=== PATIENT | male | born 2000 | race Hispanic/Latino ===

== ENCOUNTER 2025-07-02 15:34 | Emergency (ER) | payer OTHER, SELFPAY ==
[2025-06-16 17:58] VITALS: BMI 32.9
[2025-07-02 15:39] VITALS: BP 124/72; PULSE 69; RESP 17; TEMP 36.2; O2SAT 98; BMI 31.8
--- NOTE | 2025-07-02 15:48 | ED.ABDPAIN ---
HPI - Abdominal Pain General Chief Complaint: Abdominal Pain Stated Complaint: flare up / abd pain Time Seen by Provider: 07/02/25 15:48 Source: patient Mode of arrival: Ambulatory History of Present Illness HPI narrative: 25-year-old male past medical history of pancreatitis, hyperlipidemia, comes into the ED from home for evaluation of abdominal pain, he thinks that he might be having a flare-up, states that he did take oxycodone which did help his symptoms however states that he ran out of his medication therefore came into the ED for further evaluation treatment. He has had decreased p.o. intake secondary to these symptoms but denies any nausea and vomiting. Denies any other symptoms such as headache visual disturbance chest pain shortness of breath fever chills or any other GI/ symptoms at this time. Patient states that he is in the process of seeing GI at [facility] because they are not sure of why he is getting pancreatitis. Related Data Home Medications ?Medication ?Instructions ?Recorded ?Confirmed [id number] 1 cap PO 3XD 06/16/25 06/16/25 25,000-79,000-105,000 unit capsule,delayed rel (Zenpep) oxycodone 5 mg tablet 5 mg PO Q6H PRN pain 06/16/25 06/16/25 Previous Rx's ?Medication ?Instructions ?Recorded ondansetron 4 mg disintegrating 4 mg PO Q8HR PRN Nausea And 06/22/25 tablet Vomiting #20 tabs sucralfate 100 mg/mL oral 1 gm PO Q4HR #440 mL 06/22/25 suspension ondansetron 4 mg disintegrating 4 mg PO TID PRN nausea and 07/02/25 tablet vomiting 7 days #21 tabs oxycodone 5 mg tablet 5 mg PO Q8H PRN pain 3 days #9 tabs 07/02/25 Allergies Allergy/AdvReac Type Severity Reaction Status Date / Time No Known Drug Allergies Allergy Verified 07/02/25 15:39 Review of Systems Review of Systems Narrative: General: Denies fever, chills, weight loss HEENT: Denies headache, eye drainage, eye irritation, head trauma, sore throat, voice change Cardiovascular: Denies any chest pain, palpitations, tachycardia Respiratory: Denies any shortness of breath, cough, wheeze, stridor GI/: Positive abdominal pain, denies nausea, vomiting, diarrhea, bright red blood per rectum, melanotic stools, urinary frequency, urinary retention, dysuria, hematuria MSK: Denies any joint pain, muscle pains, swelling Skin: Denies any rashes, lesions, discoloration Neuro: Denies any headache, lightheadedness, dizziness, fainting, weakness Psych: Denies SI/HI Patient History Medical History (Updated 07/02/25 @ 16:52 by Gil Escalante DO) Recurrent pancreatitis Surgical History (Updated 06/17/25 @ 19:15 by Miriam English) Anesthesia History of cholecystectomy (~01/2024) Family History (Updated 06/16/25 @ 18:22 by Saba Franco MD) Mother No problems noted. Father No problems noted. Social History household members: family Smoking Status: Never smoker alcohol intake: never Smoking Status: Never smoker Exam Narrative Exam Narrative: General: Cooperative, well-developed, not in acute distress HEENT: Normocephalic, atraumatic, PERRLA, normal sclera, eyelids normal Neck: Active full range of motion, atraumatic Chest: Normal to inspection, negative crepitus, no overlying erythema ecchymosis Respiratory: Normal respiratory effort, not in acute respiratory distress, clear to auscultation bilaterally negative cough, wheeze, tachypnea, rhonchi, rales Cardiology: Regular rate rhythm negative gallop, murmur, rubs GI/: Mild tenderness to palpation of the epigastric region, soft, non rigid, normal to inspection, exam deferred MSK: Full active range of motion in all 4 extremities, atraumatic, no tenderness to palpation of any bony prominences Skin: No rashes or lesions noted Neuro: Alert awake oriented x3, moves all 4 extremities spontaneously, cranial nerves intact, able to answer all questions appropriately follows commands appropriately Psych: Cooperative, negative suicidal or homicidal ideations Initial Vital Signs Initial Vital Signs: Vital Signs Temperature 97.1 F L 07/02/25 15:39 Pulse Rate 69 07/02/25 15:39 Respiratory Rate 17 07/02/25 15:39 Blood Pressure 124/72 07/02/25 15:39 Pulse Oximetry 98 07/02/25 15:39 Oxygen Delivery Method Room Air 07/02/25 15:39 Course Orders Ordered: ED Orders 07/02/25 15:52 CT abdomen pelvis w con Stat CXR [XR chest 1V] Stat EKG-12 Lead Stat 07/02/25 16:06 Complete Blood Count AUTO DIFF Stat Comprehensive Metabolic Panel Stat Lipase Stat MAG [Magnesium] Stat Troponin & CK Cardiac Panel Stat Discontinued Medications Sodium Chloride (Normal Saline 0.9%) 1,000 mls @ 1,000 mls/hr IV BOLUS ONE Stop: 07/02/25 16:48 Last Admin: 07/02/25 16:09 Dose: 1,000 mls/hr Morphine Sulfate (Morphine 4 Mg/Ml Inj) 4 mg IV NOW ONE Stop: 07/02/25 15:50 Last Admin: 07/02/25 16:11 Dose: 4 mg Ondansetron HCl (Ondansetron 4 Mg/2 Ml Inj) 4 mg IV NOW ONE Stop: 07/02/25 15:50 Last Admin: 07/02/25 16:09 Dose: 4 mg Vital Signs Vital signs: Vital Signs - 8 hr 07/02/25 15:39 Temperature 97.1 F L Pulse Rate 69 Respiratory Rate 17 Blood Pressure 124/72 Pulse Oximetry 98 Oxygen Delivery Method Room Air MDM - Abdominal Pain Lab Data 07/02/25 16:06 07/02/25 16:06 Labs: Lab Results 07/02/25 Range/Units 16:06 WBC 4.3 L (4.5-11.0) X10^3/uL RBC 4.55 (4.5-5.9) X10^6/uL Hgb 13.4 L (13.5-17.5) g/dL Hct 38.5 L (41-53) % MCV 84.6 (80-100) fL MCH 29.4 (26-34) PG MCHC 34.7 (30-36) % RDW 13.2 (11.6-14.8) % Plt Count 209 (150-400) X10^3/uL Neut % (Auto) 62.0 (50-75) % Lymph % (Auto) 27.1 (25-40) % Porter % (Auto) 6.7 (3-14) % Eos % (Auto) 3.5 (2-4) % Baso % (Auto) 0.7 (0-2) % Neut # (Auto) 2700 (7619-6622) /uL Lymph # (Auto) 1200 (6770-0459) /uL Porter # (Auto) 300 (0-900) /uL Eos # (Auto) 100 (0-450) /uL Baso # (Auto) 0 (0-100) /uL Sodium 137 (137-145) mmol/L Potassium 4.0 (3.4-5.1) mmol/L Chloride 101 (98-107) mmol/L Carbon Dioxide 26 (22-32) mmol/L BUN 13 (9-20) mg/dL Creatinine 0.87 (0.66-1.25) mg/dL Estimated GFR > 60 (>60) mL/min BUN/Creatinine Ratio 14.9 (6-22) Glucose 96 (70-99) mg/dL Calcium 9.6 (8.4-10.2) mg/dL Magnesium 1.9 (1.6-2.3) mg/dL Total Bilirubin 1.0 (0.2-1.3) mg/dL AST 95 H (17-59) IU/L ALT 178 H (<50) IU/L Alkaline Phosphatase 74 (38-126) U/L Total Creatine Kinase 89 (55-170) U/L Troponin I < 0.012 (0.01-0.034) ng/mL Total Protein 8.3 H (6.3-8.2) g/dL Albumin 4.8 (3.5-5.0) g/dL Globulin 3.5 (1.7-4.1) g/dL Albumin/Globulin Ratio 1.4 (1.0-2.8) Lipase 6399 H (23-300) U/L ECG Data Interpretation: EKG interpreted by ED physician sinus bradycardia 52 beats per minute QTC 396 QRS NJ interval within normal limits, no STEMI MDM Narrative Medical decision making narrative: 25-year-old male with a history of hyperlipidemia pancreatitis presents for epigastric pain states it is similar to his history of pancreatitis. States that he normally takes oxycodone to help with his pain but was unable to do so due to the fact that he ?ran out he describes it as pressure no radiation. States it is the exact same whenever he has pancreatitis flare. He states that he is not sure why he has been keratitis states that he saw a software quality specialist previously and has now been referred to [facility]. On my exam patient with mild epigastric tenderness to palpation but otherwise no other findings. Patient's EKG nonischemic in nature, troponin negative, patient's chest x-ray without any acute cardiopulmonary abnormality, CT does show minimal peripancreatic edema, lipase was elevated at 6399, however patient with improved symptoms after administration of fluids and morphine, patient was able to tolerate p.o. liquids here, patient will be sent home with strict return precautions pain management and antinausea meds, he was instructed to follow up with primary care and his GI doctor, he verbalized understanding of this and agrees to being discharged home with outpatient follow up Discharge Plan Departure Patient Disposition: Home Clinical Impression: Acute pancreatitis Instructions: DI for Pancreatitis Activity Restrictions/Additional Instructions: For the next 24 hours please limit your oral intake to just clear liquids, please follow up with your primary care doctor and your software quality specialist Please return to the emergency department immediately if you are not able to tolerate the pain medications symptoms get worse Please read the discharge instructions sheet carefully and bring all papers to all doctor follow-up visits, as it may contain information that your doctor may want to see. Disease processes change and evolve, if your symptoms worsen or if you develop any new symptoms that are concerning to you please return for evaluation. Your evaluation today does not show any evidence of any life-threatening/serious illnesses requiring admission to the hospital or surgery. Please follow-up with your doctor for re-evaluation in approximately 1 day. Seek immediate medical attention for any worrisome symptoms. *If you do not have a primary care provider please contact the [facility] Resource line at [phone]. They will ask some questions about your medical history and help get you set up with a doctor in the community. Prescriptions: New oxycodone 5 mg tablet 5 mg PO Q8H PRN (Reason: pain) 3 Days Qty: 9 0RF ondansetron 4 mg tablet,disintegrating 4 mg PO TID PRN (Reason: nausea and vomiting) 7 Days Qty: 21 0RF No Action oxycodone 5 mg tablet 5 mg PO Q6H PRN (Reason: pain) Zenpep 25,000-79,000- 105,000 unit capsule,delayed release(DR/EC) 1 cap PO 3XD sucralfate 100 mg/mL Suspension 1 gm PO Q4HR Qty: 440 0RF ondansetron 4 mg Tablet,Disintegrating 4 mg PO Q8HR PRN (Reason: Nausea And Vomiting) Qty: 20 0RF Referrals: Miscellaneous,Doctor, MD [Primary Care Provider, Medical] Stand Alone Forms: Patient Portal/API
--- NOTE | 2025-07-02 15:52 | DI.CT.S_ITS ---
PROCEDURE: CT ABDOMEN PELVIS W CON INDICATIONS: Epigastric pain history of pancreatitis TECHNIQUE: After the administration of intravenous contrast, axial sections acquired from the lung bases to the pubic symphysis. Coronal and sagittal reformats were performed. For radiation dose reduction, the following was used: automated exposure control, adjustment of mA and/or kV according to patient size. COMPARISON: [facility], CT, CT ABDOMEN PELVIS W CON, 06/16/2025, 16:09. FINDINGS: Image quality: Diagnostic. Lower Chest: No significant findings. ABDOMEN: Liver: No solid mass. Gallbladder: Not identified and likely surgically absent. Biliary ducts: No biliary dilation. Pancreas: No ductal dilation. No peripancreatic fluid collection. No suspicious mass. Spleen: Size is within normal limits. Adrenal Glands: No adrenal nodules. Kidneys and Ureters: No hydronephrosis. No solid mass. No complex renal cystic lesion which requires follow up. Stomach and Bowel: Normal colonic caliber, without significant wall thickening. Peritoneum: No abnormal intraperitoneal fluid. Minimal peripancreatic edema. No free air. Ventral Wall: No significant ventral hernia. Abdominal Nodes: No retroperitoneal or mesenteric adenopathy by size criteria. Vessels: Aorta and inferior vena cava are normal in size. PELVIS: Pelvic Organs: Unremarkable. Bladder: No bladder wall thickening, accounting for underdistention. Pelvic Nodes: No enlarged lymph nodes. Miscellaneous: No inguinal hernias are seen. Bones: No aggressive osseous abnormality. IMPRESSION: Minimal peripancreatic edema which is nonspecific but can be seen in setting of pancreatitis. Of note, CT is insensitive for pancreatitis. Dictated by: Julienne Becerra M.D. on 07/02/2025 at 15:25 Approved by: Julienne Becerra M.D. on 07/02/2025 at 15:31
--- NOTE | 2025-07-02 15:52 | DI.RAD.S_ITS ---
PROCEDURE: XR CHEST 1V INDICATIONS: Epigastric pain TECHNIQUE: One view of the chest was acquired. COMPARISON: None. FINDINGS: Surgical changes and devices: None. Lungs and pleura: Lungs are clear. No pleural effusions or pneumothorax. Mediastinum: Mediastinal contours appear normal. Heart size is normal. Bones and chest wall: No suspicious bony lesions. Overlying soft tissues appear unremarkable. IMPRESSION: No acute cardiopulmonary abnormality is seen. Dictated by: Julienne Becerra M.D. on 07/02/2025 at 15:24 Approved by: Julienne Becerra M.D. on 07/02/2025 at 15:25
[2025-07-02] MEDS: ONDANSETRON 4 MG/2 ML INJ IV (16:09)
[2025-07-02] MEDS: SODIUM CHLORIDE 0.9% 1,000 ML 1000 ML IV (16:09)
[2025-07-02] MEDS: MORPHINE 4 MG/ML INJ IV (16:11)
[2025-07-02 16:18] LABS: Add Manual Diff / Slide Review NO; Hematocrit 38.5 % (41-53); Hemoglobin 13.4 g/dL (13.5-17.5); Lymphocytes Absolute Auto 1200 /uL (1100-4500); Mean Corpuscular HGB Conc 34.7 % (30-36); Mean Corpuscular Hemoglobin 29.4 PG (26-34); Mean Corpuscular Volume 84.6 fL (80-100); Platelet Count 209 X10^3/uL (150-400)
[2025-07-02 16:27] LABS: Alanine Aminotransferase 178 IU/L (<50); Albumin 4.8 g/dL (3.5-5.0); Albumin Globulin Ratio 1.4 (1.0-2.8); Alkaline Phosphatase 74 U/L (38-126); Blood Urea Nitrogen 13 mg/dL (9-20); Calcium 9.6 mg/dL (8.4-10.2); Carbon Dioxide 26 mmol/L (22-32); Chloride 101 mmol/L (98-107); Creatine Kinase 89 U/L (55-170); Estimated Glomerular Filt Rate > 60 mL/min (>60); Globulin 3.5 g/dL (1.7-4.1); Glucose 96 mg/dL (70-99); HEMOLYSIS < 15 (0-50); Magnesium 1.9 mg/dL (1.6-2.3); Potassium 4.0 mmol/L (3.4-5.1); Sodium 137 mmol/L (137-145); Total Protein 8.3 g/dL (6.3-8.2)
--- NOTE | 2025-07-02 16:29 | EKG_ITS ---
[facility] [address] [place] [address] Test Date: 2025-07-02 Pat Name: Cleveland KrishnamurthyDepartment: [facility] Room: Gender: Male Monkey Breeder: LIAM : 2000 Requested By: Order Number: [id number] Reading MD: Brenton Lehman MD Measurements Intervals [place] Rate: 52 P: 9 AL: 154 QRS: -15 QRSD: 104 T: 7 QT: 426 QTc: 396 Interpretive Statements Sinus bradycardia Minimal voltage criteria for LVH, may be normal variant ( R in aVL ) Electronically Signed On 07-03-2025 7:47:13 PDT by Brenton Lehman MD
[2025-07-02 16:37] VITALS: PULSE 55; O2SAT 99
[2025-07-02 16:38] VITALS: BP 110/58; PULSE 54; O2SAT 98
[2025-07-02 16:39] LABS: Troponin I < 0.012 ng/mL (0.01-0.034)
[2025-07-02 16:40] VITALS: BP 112/63; PULSE 57; RESP 20; O2SAT 98
[2025-07-02 16:43] LABS: Lipase 6399 U/L (23-300)
== END 2025-07-02 17:02 | disposition home or self-care (01) ==
PROVIDERS: Emergency Provider Student in an Organized Health Care Education/Training Program
DX: K85.90 Acute pancreatitis without necrosis or infection, unspecified (principal)
CPT/HCPCS: 36415; 71045; 74177; 80053; 82550; 83690; 83735; 84484; 85025; 93005; 96374; 96375; 99284; J2272; J2405; Q9967

== ENCOUNTER 2025-07-05 05:22 | Inpatient (IN) | payer OTHER, SELFPAY ==
[2025-06-16 17:58] VITALS: BMI 32.9
[2025-07-05] VITALS (12 sets, daily range): BP systolic 103–135; BP diastolic 49–64; PULSE 42–62; RESP 13–18; TEMP 35.9–36.9; O2SAT 94–100; BMI 31.6
[2025-07-05 05:50] LABS: Add Manual Diff / Slide Review NO; Hematocrit 42.0 % (41-53); Hemoglobin 14.4 g/dL (13.5-17.5); Lymphocytes Absolute Auto 1800 /uL (1100-4500); Mean Corpuscular HGB Conc 34.4 % (30-36); Mean Corpuscular Hemoglobin 29.3 PG (26-34); Mean Corpuscular Volume 85.1 fL (80-100); Platelet Count 232 X10^3/uL (150-400)
[2025-07-05 05:55] LABS: Alanine Aminotransferase 137 IU/L (<50); Albumin 5.3 g/dL (3.5-5.0); Albumin Globulin Ratio 1.4 (1.0-2.8); Alkaline Phosphatase 71 U/L (38-126); Blood Urea Nitrogen 13 mg/dL (9-20); Calcium 9.7 mg/dL (8.4-10.2); Carbon Dioxide 26 mmol/L (22-32); Chloride 102 mmol/L (98-107); Estimated Glomerular Filt Rate > 60 mL/min (>60); Globulin 3.7 g/dL (1.7-4.1); Glucose 112 mg/dL (70-99); HEMOLYSIS < 15 (0-50); Potassium 3.7 mmol/L (3.4-5.1); Sodium 139 mmol/L (137-145); Total Protein 9.0 g/dL (6.3-8.2)
--- NOTE | 2025-07-05 06:08 | ED_ITS ---
HPI - Abdominal Pain <Brenton Smith, DO - Last Filed: 07/05/25 17:08> General Chief Complaint: Abdominal Pain Stated Complaint: Back Pain, Abdominal Pain, Nausea Time Seen by Provider: 07/05/25 06:08 Source: patient Mode of arrival: Ambulatory History of Present Illness HPI narrative: 25-year-old gentleman history of cholecystectomy, hx of recurrent pancreatitis first dx in 2017, hypertriglyceridemia, hepatic steatosis, seen a few days ago here for pancreatitis discharged on oxycodone and has has been on a bland diet started to have worsening epigastric pain radiating to the back despite being on pain medicines. Patient denies fever, chills, bodyaches, nausea, vomiting, diarrhea, chest pain, shortness of breath, hematuria, urinary complaints. He denies any alcohol use and is on pancreatic enzyme tablet but no other meds or supplements. Other than what is stated 14 pt ROS is negative. Related Data Home Medications ?Medication ?Instructions ?Recorded ?Confirmed mhgsof-frswhihy-ajubsyu 1 cap PO 3XD 06/16/25 25,000-79,000-105,000 unit capsule,delayed rel (Zenpep) oxycodone 5 mg tablet 5 mg PO Q6H PRN pain 5 07/05/25 Previous Rx's ?Medication ?Instructions ?Recorded ondansetron 4 mg disintegrating 4 mg PO Q8HR PRN Nause a And 06/22/25 tablet Vomiting #20 tabs sucralfate 100 mg/mL oral 1 gm PO Q4HR #440 mL 5 suspension Allergies Allergy/AdvReac Type Severity Reaction Status Date / Time No Known Drug Allergies Allergy Verified 07/05/25 05:30 Review of Systems <Brenton Smith, DO - Last Filed: 07/05/25 17:08> Review of Systems ROS Unobtainable: All systems reviewed & are unremarkable except as noted in HPI and below Patient History <Brenton Smith, DO - Last Filed: 07/05/25 17:08> Medical History Recurrent pancreatitis Surgical History Anesthesia History of cholecystectomy (~01/2024) Family History Mother No problems noted. Father No problems noted. Social History household members: family Smoking Status: Never smoker alcohol intake: never Smoking Status: Smoker, status unknown Exam <Brenton Smith DO - Last Filed: 07/05/25 17:08> Narrative Exam Narrative: GENERAL: [25] year old patient appears stated age. Well-developed patient, in mild distress. HEAD: Atraumatic. Normocephalic. EYES: Pupils equal round and reactive. Extraocular motions intact. No scleral icterus. No injection or drainage. ENT: Nose without bleeding, purulent drainage. Throat without erythema, tonsillar hypertrophy or exudate. Airway patent. NECK: Trachea midline. Non tender CARDIOVASCULAR: Regular rate and rhythm without murmurs, gallops, or rubs. RESPIRATORY: Clear to auscultation. Breath sounds equal bilaterally. No wheezes, rales, or rhonchi. GASTROINTESTINAL: Abdomen soft, epigastric tenderness to palpation no rebound rigidity or guarding, nondistended. EXTREMITIES: No edema or joint tenderness. BACK: Nontender without deformity or crepitance. No flank tenderness. NEURO: AOx3. SKIN: No rash or erythema of visible areas Initial Vital Signs Initial Vital Signs: Vital Signs Temperature 97.7 F 07/05/25 05:30 Pulse Rate 62 07/05/25 05:30 Respiratory Rate 18 07/05/25 05:30 Blood Pressure 120/60 07/05/25 05:30 Pulse Oximetry 96 07/05/25 05:30 Oxygen Delivery Method Room Air 07/05/25 05:30 <Adan Jackson MD - Last Filed: 07/05/25 09:05> Initial Vital Signs Initial Vital Signs: Vital Signs Temperature 97.7 F 07/05/25 05:30 Pulse Rate 62 07/05/25 05:30 Respiratory Rate 18 07/05/25 05:30 Blood Pressure 120/60 07/05/25 05:30 Pulse Oximetry 96 07/05/25 05:30 Oxygen Delivery Method Room Air 07/05/25 05:30 Course <Brenton Smith DO - Last Filed: 07/05/25 17:08> Orders Ordered: Heparin Sodium (Porcine) (Heparin 5,000 Unit/Ml Vial) 5,000 unit SUBCUT BID COUNTS INCLUDE 234 BEDS AT THE [facility] Last Admin: 07/05/25 10:44 Dose: 5,000 unit Documented By: TRI Hydromorphone HCl (Hydromorphone Hcl 0.5 Mg/0.5 Ml Syringe) 1 mg IV Q2H PRN PRN Reason: Pain, Severe (7-10) Last Admin: 07/05/25 15:17 Dose: 1 mg Documented By: TRI Sodium Chloride (Normal Saline 0.9%) 1,000 mls @ 100 mls/hr IV CONT COUNTS INCLUDE 234 BEDS AT THE [facility] Last Admin: 07/05/25 10:43 Dose: 100 mls/hr Documented By: TRI Naloxone HCl (Naloxone 0.4 Mg/Ml Vial) 0.2 mg IV Q2MIN PRN PRN Reason: Opiate Reversal Ondansetron HCl (Ondansetron 4 Mg/2 Ml Inj) 4 mg IV NOW PRN PRN Reason: Nausea And Vomiting Last Admin: 07/05/25 06:31 Dose: 4 mg Documented By: CHRIS Ondansetron HCl (Ondansetron 4 Mg Odt) 4 mg PO NOW PRN PRN Reason: Nausea And Vomiting Ondansetron HCl (Ondansetron 4 Mg/2 Ml Inj) 4 mg IV Q8HR PRN PRN Reason: Nausea And Vomiting Discontinued Medications Hydromorphone HCl (Hydromorphone 1 Mg/Ml Syringe) 1 mg IV NOW ONE Stop: 07/05/25 06:24 Last Admin: 07/05/25 06:30 Dose: 1 mg Documented By: CHRIS Hydromorphone HCl (Hydromorphone Hcl 0.5 Mg/0.5 Ml Syringe) 0.5 mg IV Q2H PRN PRN Reason: Pain, Severe (7-10) Last Admin: 07/05/25 12:54 Dose: 0.5 mg Documented By: Admin: 07/05/25 10:44 Dose: 0.5 mg Documented By: TRI Lactated Ringer's (Lactated Ringers) 1,000 mls @ 1,000 mls/hr IV BOLUS ONE Stop: 07/05/25 07:10 Last Infusion: 07/05/25 08:37 Dose: Infused Documented By: Admin: 07/05/25 06:32 Dose: 1,000 mls/hr Documented By: CHRIS Ketorolac Tromethamine (Ketorolac 30 Mg/Ml Vial) 15 mg IV NOW ONE Stop: 07/05/25 06:24 Last Admin: 07/05/25 06:31 Dose: 15 mg Documented By: CHRIS Vital Signs Vital signs: Vital Signs - 8 hr 07/05/25 05:30 07/05/25 06:18 07/05/25 06:30 Temperature 97.7 F Pulse Rate 62 51 L 56 L Respiratory Rate 18 Blood Pressure 120/60 Pulse Oximetry 96 96 97 Oxygen Delivery Method Room Air 07/05/25 07:00 07/05/25 07:29 07/05/25 07:29 Temperature Pulse Rate 57 L 47 L Respiratory Rate Blood Pressure 103/50 L Pulse Oximetry 94 94 Oxygen Delivery Method 07/05/25 07:30 07/05/25 07:30 07/05/25 08:00 Temperature Pulse Rate 42 L Respiratory Rate Blood Pressure 103/53 L 107/57 L Pulse Oximetry 95 Oxygen Delivery Method 07/05/25 08:00 07/05/25 08:30 07/05/25 08:30 Temperature Pulse Rate 53 L 42 L Respiratory Rate Blood Pressure 118/58 L Pulse Oximetry 98 96 Oxygen Delivery Method <Adan Jackson MD - Last Filed: 07/05/25 09:05> Course Course Narrative: Care assumed at 7:00 a.m. shift change. Reviewed labs and previous note. On examination the patient reports his pain is adequately controlled he is not presently nauseated. He has not been having fevers. Has had numerous episodes of pancreatitis and previous admissions. Has a referral to the [facility]. On exam he has upper abdominal tenderness with voluntary guarding. CT is done I reviewed it appears to have pancreatitis without complication. We will await radiology report. Plan for admission for bowel rest hydration and symptom control discussed with patient who is in agreement. Orders Ordered: Heparin Sodium (Porcine) (Heparin 5,000 Unit/Ml Vial) 5,000 unit SUBCUT BID AARON Last Admin: 07/05/25 10:44 Dose: 5,000 unit Documented By: TRI Hydromorphone HCl (Hydromorphone Hcl 0.5 Mg/0.5 Ml Syringe) 1 mg IV Q2H PRN PRN Reason: Pain, Severe (7-10) Last Admin: 07/05/25 15:17 Dose: 1 mg Documented By: TRI Sodium Chloride (Normal Saline 0.9%) 1,000 mls @ 100 mls/hr IV CONT AARON Last Admin: 07/05/25 10:43 Dose: 100 mls/hr Documented By: TRI Naloxone HCl (Naloxone 0.4 Mg/Ml Vial) 0.2 mg IV Q2MIN PRN PRN Reason: Opiate Reversal Ondansetron HCl (Ondansetron 4 Mg/2 Ml Inj) 4 mg IV NOW PRN PRN Reason: Nausea And Vomiting Last Admin: 07/05/25 06:31 Dose: 4 mg Documented By: CHRIS Ondansetron HCl (Ondansetron 4 Mg Odt) 4 mg PO NOW PRN PRN Reason: Nausea And Vomiting Ondansetron HCl (Ondansetron 4 Mg/2 Ml Inj) 4 mg IV Q8HR PRN PRN Reason: Nausea And Vomiting Discontinued Medications Hydromorphone HCl (Hydromorphone 1 Mg/Ml Syringe) 1 mg IV NOW ONE Stop: 07/05/25 06:24 Last Admin: 07/05/25 06:30 Dose: 1 mg Documented By: CHRIS Hydromorphone HCl (Hydromorphone Hcl 0.5 Mg/0.5 Ml Syringe) 0.5 mg IV Q2H PRN PRN Reason: Pain, Severe (7-10) Last Admin: 07/05/25 12:54 Dose: 0.5 mg Documented By: Admin: 07/05/25 10:44 Dose: 0.5 mg Documented By: TRI Lactated Ringer's (Lactated Ringers) 1,000 mls @ 1,000 mls/hr IV BOLUS ONE Stop: 07/05/25 07:10 Last Infusion: 07/05/25 08:37 Dose: Infused Documented By: MLEvin Admin: 07/05/25 06:32 Dose: 1,000 mls/hr Documented By: CHRIS Ketorolac Tromethamine (Ketorolac 30 Mg/Ml Vial) 15 mg IV NOW ONE Stop: 07/05/25 06:24 Last Admin: 07/05/25 06:31 Dose: 15 mg Documented By: CHRIS Consultations Consultation #1: Case discussed with hospitalist, Dr. Schroeder, admission is accepted Vital Signs Vital signs: Vital Signs - 8 hr 07/05/25 05:30 07/05/25 06:18 07/05/25 06:30 Temperature 97.7 F Pulse Rate 62 51 L 56 L Respiratory Rate 18 Blood Pressure 120/60 Pulse Oximetry 96 96 97 Oxygen Delivery Method Room Air 07/05/25 07:00 07/05/25 07:29 07/05/25 07:29 Temperature Pulse Rate 57 L 47 L Respiratory Rate Blood Pressure 103/50 L Pulse Oximetry 94 94 Oxygen Delivery Method 07/05/25 07:30 07/05/25 07:30 07/05/25 08:00 Temperature Pulse Rate 42 L Respiratory Rate Blood Pressure 103/53 L 107/57 L Pulse Oximetry 95 Oxygen Delivery Method 07/05/25 08:00 07/05/25 08:30 07/05/25 08:30 Temperature Pulse Rate 53 L 42 L Respiratory Rate Blood Pressure 118/58 L Pulse Oximetry 98 96 Oxygen Delivery Method MDM - Abdominal Pain <Brenton Smith, DO - Last Filed: 07/05/25 17:08> Lab Data 07/05/25 05:38 07/05/25 05:38 Labs: Lab Results 07/05/25 Range/Units 05:38 WBC 5.9 (4.5-11.0) X10^3/uL RBC 4.93 (4.5-5.9) X10^6/uL Hgb 14.4 (13.5-17.5) g/dL Hct 42.0 (41-53) % MCV 85.1 (80-100) fL MCH 29.3 (26-34) PG MCHC 34.4 (30-36) % RDW 13.3 (11.6-14.8) % Plt Count 232 (150-400) X10^3/uL Neut % (Auto) 56.0 (50-75) % Lymph % (Auto) 30.5 (25-40) % [place] % (Auto) 8.7 (3-14) % Eos % (Auto) 4.4 H (2-4) % Baso % (Auto) 0.4 (0-2) % Neut # (Auto) 3300 (4278-7711) /uL Lymph # (Auto) 1800 (0998-4291) /uL [place] # (Auto) 500 (0-900) /uL Eos # (Auto) 300 (0-450) /uL Baso # (Auto) 0 (0-100) /uL Sodium 139 (137-145) mmol/L Potassium 3.7 (3.4-5.1) mmol/L Chloride 102 (98-107) mmol/L Carbon Dioxide 26 (22-32) mmol/L BUN 13 (9-20) mg/dL Creatinine 1.02 (0.66-1.25) mg/dL Estimated GFR > 60 (>60) mL/min BUN/Creatinine Ratio 12.7 (6-22) Glucose 112 H (70-99) mg/dL Calcium 9.7 (8.4-10.2) mg/dL Total Bilirubin 0.9 (0.2-1.3) mg/dL AST 70 H (17-59) IU/L ALT 137 H (<50) IU/L Alkaline Phosphatase 71 (38-126) U/L Total Protein 9.0 H (6.3-8.2) g/dL Albumin 5.3 H (3.5-5.0) g/dL Globulin 3.7 (1.7-4.1) g/dL Albumin/Globulin Ratio 1.4 (1.0-2.8) Lipase 12251 H D (23-300) U/L Point of care testing: Urine Dip Bedside Urine Glucose Negative Bedside Urine Bilirubin - Negative Bedside Urine Ketone - Negative Urine Specific [place] 1.015 Bedside Urine Occult Blood - Negative Bedside Urine pH 6.0 Bedside Urine Protein +/- 15 Bedside Urine Urobilinogen 0.2 Bedside Urine Nitrite - Negative Bedside Urine Leukocytes - Negative Esterase MDM Narrative Medical decision making narrative: All lab work, vital signs, nurse triage note, medication list, previous ER visits, and all imaging studies reviewed. White count normal CMP normal except glucose 112 AST 70 ALT 137 lipase 12,161 from 6399 3 days ago. Patient given LR 1 L bolus Toradol and Dilaudid here. Pt s/o to at shift change pending final disposition. 25-year-old male with recurrent pancreatitis presenting with symptoms consistent with pancreatitis. Appears nontoxic, lipase is up trending from last visit no acute complication pancreatitis seen on CT. Patient does not appear to be septic. We will be admitted to the hospitalist service for IV hydration bowel rest and pain control. <Adan Jackson MD - Last Filed: 07/05/25 09:05> Medical Records Medical records narrative: Reviewed June 23 discharge summary, recurrent pancreatitis unknown etiology. Lab Data Lab results narrative: No leukocytosis, elevated lipase trending upward significantly since last visit, normal bilirubin Labs: Lab Results 07/05/25 Range/Units 05:38 WBC 5.9 (4.5-11.0) X10^3/uL RBC 4.93 (4.5-5.9) X10^6/uL Hgb 14.4 (13.5-17.5) g/dL Hct 42.0 (41-53) % MCV 85.1 (80-100) fL MCH 29.3 (26-34) PG MCHC 34.4 (30-36) % RDW 13.3 (11.6-14.8) % Plt Count 232 (150-400) X10^3/uL Neut % (Auto) 56.0 (50-75) % Lymph % (Auto) 30.5 (25-40) % [place] % (Auto) 8.7 (3-14) % Eos % (Auto) 4.4 H (2-4) % Baso % (Auto) 0.4 (0-2) % Neut # (Auto) 3300 (8847-1816) /uL Lymph # (Auto) 1800 (2149-0654) /uL [place] # (Auto) 500 (0-900) /uL Eos # (Auto) 300 (0-450) /uL Baso # (Auto) 0 (0-100) /uL Sodium 139 (137-145) mmol/L Potassium 3.7 (3.4-5.1) mmol/L Chloride 102 (98-107) mmol/L Carbon Dioxide 26 (22-32) mmol/L BUN 13 (9-20) mg/dL Creatinine 1.02 (0.66-1.25) mg/dL Estimated GFR > 60 (>60) mL/min BUN/Creatinine Ratio 12.7 (6-22) Glucose 112 H (70-99) mg/dL Calcium 9.7 (8.4-10.2) mg/dL Total Bilirubin 0.9 (0.2-1.3) mg/dL AST 70 H (17-59) IU/L ALT 137 H (<50) IU/L Alkaline Phosphatase 71 (38-126) U/L Total Protein 9.0 H (6.3-8.2) g/dL Albumin 5.3 H (3.5-5.0) g/dL Globulin 3.7 (1.7-4.1) g/dL Albumin/Globulin Ratio 1.4 (1.0-2.8) Lipase 69278 H D (23-300) U/L Point of care testing: Urine Dip Bedside Urine Glucose Negative Bedside Urine Bilirubin - Negative Bedside Urine Ketone - Negative Urine Specific [place] 1.015 Bedside Urine Occult Blood - Negative Bedside Urine pH 6.0 Bedside Urine Protein +/- 15 Bedside Urine Urobilinogen 0.2 Bedside Urine Nitrite - Negative Bedside Urine Leukocytes - Negative Esterase Imaging Data CT scan - abdomen/pelvis: My Impression: Independent review of CT abdomen and pelvis, inflammatory changes around the pancreas, no complications Radiologist's Impression: [address] [address] [address] Scan Report Signed Patient: Cleveland Myers MR#: [id number] : 2000 Acct:[id number] Age/Sex: 25 / M Date of Service: 07/05/25 Loc: ED Accession Number: [id number] Procedure: CT abdomen pelvis w con Ordering Provider: Brenton Smith D.O. PROCEDURE: CT ABDOMEN PELVIS W CON INDICATIONS: hx of pancreatitis TECHNIQUE: After the administration of intravenous contrast, axial sections acquired from the lung bases to the pubic symphysis. Coronal and sagittal reformats were performed. For radiation dose reduction, the following was used: automated exposure control, adjustment of mA and/or kV according to patient size. COMPARISON: [facility], CT, CT ABDOMEN PELVIS W CON, 07/02/2025, 16:17. FINDINGS: Image quality: Diagnostic. Lower Chest: No significant findings. ABDOMEN: Liver: No solid mass. Gallbladder: Absent Biliary ducts: No biliary dilation. Pancreas: Pancreatic duct is diffusely prominent to the level of the duodenum. No obstructing mass. Spleen: Size is within normal limits. Adrenal Glands: No adrenal nodules. Kidneys and Ureters: No hydronephrosis. No solid mass. No complex renal cystic lesion which requires follow up. Stomach and Bowel: Normal colonic caliber, without significant wall thickening. Normal appendix. Diverticulosis. Peritoneum: No abnormal intraperitoneal fluid. No free air. Ventral Wall: No significant ventral hernia. Abdominal Nodes: No retroperitoneal or mesenteric adenopathy by size criteria. Vessels: Aorta and inferior vena cava are normal in size. PELVIS: Pelvic Organs: Unremarkable. Bladder: No bladder wall thickening, accounting for underdistention. Pelvic Nodes: No enlarged lymph nodes. Miscellaneous: No inguinal hernias are seen. Bones: No aggressive osseous abnormality. IMPRESSION: 1. Remote cholecystectomy. 2. Mild prominence of the pancreatic duct, unchanged. 3. No biliary ductal dilatation. 4. Diverticulosis. 5. No acute abdominal process noted. Comment: Final report is concordant with preliminary interpretation provided by [facility]. Dictated by: Severino Melo M.D. on 07/05/2025 at 8:26 Approved by: Severino Melo M.D. on 07/05/2025 at 8:29 [facility] Narrative Medical decision making narrative: All lab work, vital signs, nurse triage note, medication list, previous ER visits, and all imaging studies reviewed. White count normal CMP normal except glucose 112 AST 70 ALT 137 lipase 12,161 from 6399 3 days ago. Patient given LR 1 L bolus Toradol and Dilaudid here. 25-year-old male with recurrent pancreatitis presenting with symptoms consistent with pancreatitis. Appears nontoxic, lipase is up trending from last visit no acute complication pancreatitis seen on CT. Patient does not appear to be septic. We will be admitted to the hospitalist service for IV hydration bowel rest and pain control. Discharge Plan Departure Patient Disposition: Admitted As Inpatient Clinical Impression: Acute pancreatitis Qualifiers: Pancreatitis type: unspecified pancreatitis type Acute pancreatitis complication: no infection or necrosis Qualified Code(s): K85.90 - Acute pancreatitis without necrosis or infection, unspecified Admit Date/Time: 07/05/25 08:32 Admit Provider: Contreras Toribio
[2025-07-05 06:18] LABS: Lipase 12161 U/L (23-300)
[2025-07-05] MEDS: KETOROLAC 30 MG/ML VIAL 15 MG IV (06:31)
[2025-07-05] MEDS: ONDANSETRON 4 MG/2 ML INJ IV (06:31)
[2025-07-05] MEDS: LACTATED RINGERS 1,000 ML 1000 ML IV (06:32)
--- NOTE | 2025-07-05 08:50 | W.PC.EDHO ---
Report given to Neeru Staley RN
--- NOTE | 2025-07-05 09:31 | PM.HP.1 ---
History of Present Illness History of Present Illness Date Patient Seen: 07/05/25 Time Patient Seen: 10:25 Chief complaint: Back Pain, Abdominal Pain, Nausea Narrative: Patient was a 25-year-old male with a history of chronic recurrent pancreatitis 20 has no clear contributors to his recurrent episodes. He was not drink alcohol, and was evaluated Sheron kat and not found to have a clear etiology for his issues. He was no known history of autoimmune pancreatitis, does not take any drugs implicated in pancreatitis and has no family history. He was in the ER several days ago with a lipase of 6000, did bowel rest at home and stayed on liquids. He had progressive abdominal pain which is epigastric, constant, and radiates to the back. He was having nausea, but no vomiting. He came back to the ED today and had a lipase of 12,000. [facility] Medical History Recurrent pancreatitis Surgical History Anesthesia History of cholecystectomy (~01/2024) Family History Mother No problems noted. Father No problems noted. Social History household members: family Smoking Status: Never smoker alcohol intake: never Meds Home Medications and Allergies Home Medications ?Medication ?Instructions ?Recorded ?Confirmed ?Type ydiusa-lhnufjwd-ibkijci 1 cap PO 3XD 06/16/25 06/16/25 History 25,000-79,000-105,000 unit capsule,delayed rel (Zenpep) oxycodone 5 mg tablet 5 mg PO Q6H PRN pain 06/16/25 06/16/25 History ondansetron 4 mg disintegrating 4 mg PO Q8HR PRN Nausea And 06/22/25 Rx tablet Vomiting #20 tabs sucralfate 100 mg/mL oral 1 gm PO Q4HR #440 mL 06/22/25 Rx suspension ondansetron 4 mg disintegrating 4 mg PO TID PRN nausea and 07/02/25 Rx tablet vomiting 7 days #21 tabs Allergies Allergy/AdvReac Type Severity Reaction Status Date / Time No Known Drug Allergies Allergy Verified 07/05/25 05:30 Review of Systems Review of Systems Narrative: All else reviewed and otherwise unremarkable except as noted in the history and physical. Exam Vital Signs (past 8 hours): - 07/05/25 05:30 07/05/25 06:18 07/05/25 06:30 Temperature 97.7 F Pulse Rate 62 51 L 56 L Respiratory Rate 18 Blood Pressure 120/60 Pulse Oximetry 96 96 97 Oxygen Delivery Method Room Air 07/05/25 07:00 07/05/25 07:29 07/05/25 07:29 Temperature Pulse Rate 57 L 47 L Respiratory Rate Blood Pressure 103/50 L Pulse Oximetry 94 94 Oxygen Delivery Method 07/05/25 07:30 07/05/25 07:30 07/05/25 08:00 Temperature Pulse Rate 42 L Respiratory Rate Blood Pressure 103/53 L 107/57 L Pulse Oximetry 95 Oxygen Delivery Method 07/05/25 08:00 07/05/25 08:30 07/05/25 08:30 Temperature Pulse Rate 53 L 42 L Respiratory Rate Blood Pressure 118/58 L Pulse Oximetry 98 96 Oxygen Delivery Method Oxygen Delivery Method Room Air Narrative Exam Narrative: NAD, alert and oriented, fluent speech, calm. Normocephalic skull, EOMI, anicteric sclera, symmetric pupils. Oropharynx unremarkable, no droop. Neck supple, midline trachea, no adenopathy. Lungs clear, normal rate and effort. Heart regular, no murmur gallop or rub. Abdomen is soft, non distended and notable for epigastric tenderness without guarding or rebound. Extremities are free of edema. Skin is free of rash or lesions. Joints are not swollen or deformed. Judgment appears to be normal. Objective Labs 07/05/25 05:38 07/05/25 05:38 Labs: Laboratory Results - last 24 hr 07/05/25 05:38 WBC 5.9 RBC 4.93 Hgb 14.4 Hct 42.0 MCV 85.1 MCH 29.3 MCHC 34.4 RDW 13.3 Plt Count 232 Neut % (Auto) 56.0 Lymph % (Auto) 30.5 [place] % (Auto) 8.7 Eos % (Auto) 4.4 H Baso % (Auto) 0.4 Neut # (Auto) 3300 Lymph # (Auto) 1800 [place] # (Auto) 500 Eos # (Auto) 300 Baso # (Auto) 0 Sodium 139 Potassium 3.7 Chloride 102 Carbon Dioxide 26 BUN 13 Creatinine 1.02 Estimated GFR > 60 BUN/Creatinine Ratio 12.7 Glucose 112 H Calcium 9.7 Total Bilirubin 0.9 AST 70 H ALT 137 H Alkaline Phosphatase 71 Total Protein 9.0 H Albumin 5.3 H Globulin 3.7 Albumin/Globulin Ratio 1.4 Lipase 56562 H D Assessment & Plan Assessment & Plan narrative: 1. Recurrent pancreatitis, present on admission and active. -NPO, IVF. -Analgesics. -Antiemtics. Anticipate 2 MN in the hospital. Full code. Time-Based Coding :: 35 min spent with patient and on the chart (including review of chart, obtaining history, exam, reviewing outside data, placing orders, documenting exam and treatment plan, and counseling patient) on 07/05]. Quality VTE Deep Vein Thrombosis/Pulmonary Embolism Present on Admission: No MIPS - Admit I confirm the patient?s Advance Care Plan is present, Code status is documented, Surrogate decision maker is in patient?s record [If Yes, STOP here]: Yes The patient?s Advance Care plan is not present because I confirmed today that the patient does not wish or was not able to name a surrogate decision maker or provide an Advance Care Plan.: Yes
[2025-07-05] MEDS: SODIUM CHLORIDE 0.9% 1,000 ML 100 ML IV ×2 (10:43→20:28)
[2025-07-05] MEDS: HEPARIN 5,000 UNIT/ML VIAL 5000 UNIT SUBCUT ×2 (10:44→22:03)
[2025-07-06] MEDS: MORPHINE 2 MG/ML INJ IV ×4 (00:38→20:14)
[2025-07-06 04:00] VITALS: BP 103/60; PULSE 58; RESP 18; TEMP 36.3; O2SAT 99
[2025-07-06 05:28] LABS: Add Manual Diff / Slide Review NO; Hematocrit 38.3 % (41-53); Hemoglobin 13.0 g/dL (13.5-17.5); Lymphocytes Absolute Auto 1200 /uL (1100-4500); Mean Corpuscular HGB Conc 33.9 % (30-36); Mean Corpuscular Hemoglobin 28.8 PG (26-34); Mean Corpuscular Volume 84.9 fL (80-100); Platelet Count 186 X10^3/uL (150-400)
[2025-07-06 05:36] LABS: Albumin 4.4 g/dL (3.5-5.0); Albumin Globulin Ratio 1.5 (1.0-2.8); Alkaline Phosphatase 149 U/L (38-126); Blood Urea Nitrogen 7 mg/dL (9-20); Calcium 9.0 mg/dL (8.4-10.2); Carbon Dioxide 21 mmol/L (22-32); Chloride 105 mmol/L (98-107); Estimated Glomerular Filt Rate > 60 mL/min (>60); Globulin 2.9 g/dL (1.7-4.1); Glucose 83 mg/dL (70-99); HEMOLYSIS < 15 (0-50); Lipase 588 U/L (23-300); Potassium 3.8 mmol/L (3.4-5.1); Sodium 138 mmol/L (137-145); Total Protein 7.3 g/dL (6.3-8.2)
[2025-07-06 05:44] LABS: Alanine Aminotransferase 808 IU/L (<50)
[2025-07-06] MEDS: SODIUM CHLORIDE 0.9% 1,000 ML 100 ML IV ×2 (05:59→15:59)
[2025-07-06 06:31] VITALS: BP 114/63; PULSE 78; RESP 14
--- NOTE | 2025-07-06 07:39 | PM.PN.1 ---
Subjective Subjective Interval history: 07/05: Admitted for recurrent a history of clear cause. S: He was still having epigastric abdominal pain, but is improving. Minimal nausea and no vomiting. He has been out of bed and ambulating. Exam Vital Signs (past 8 hours): - 07/06/25 04:00 07/06/25 06:31 Temperature 97.3 F L Pulse Rate 58 L 78 Respiratory Rate 18 14 Blood Pressure 103/60 114/63 Pulse Oximetry 99 Oxygen Flow Rate 0 Oxygen Delivery Method Room Air Oxygen Flow Rate 0 Narrative Exam Narrative: NAD, alert and oriented. Fluent speech. Lungs are clear, normal rate and effort. Heart is regular, no murmur gallop or rub. Abdomen is soft, non distended. Minimal epigastric tenderness. Extremities are free of edema. Objective Labs 07/06/25 04:42 07/06/25 04:42 Labs: Laboratory Results - last 24 hr 07/05/25 07/06/25 11:30 04:42 WBC 3.5 L RBC 4.50 Hgb 13.0 L Hct 38.3 L MCV 84.9 MCH 28.8 MCHC 33.9 RDW 13.2 Plt Count 186 Neut % (Auto) 51.4 Lymph % (Auto) 33.9 [place] % (Auto) 10.3 Eos % (Auto) 4.0 Baso % (Auto) 0.4 Neut # (Auto) 1800 Lymph # (Auto) 1200 [place] # (Auto) 400 Eos # (Auto) 100 Baso # (Auto) 0 Sodium 138 Potassium 3.8 Chloride 105 Carbon Dioxide 21 L BUN 7 L Creatinine 0.76 Estimated GFR > 60 BUN/Creatinine Ratio 9.2 Glucose 83 POC Whole Bld Glucose 98 Calcium 9.0 Total Bilirubin 2.4 H AST 1268 H ALT 808 H Alkaline Phosphatase 149 H D Total Protein 7.3 Albumin 4.4 Globulin 2.9 Albumin/Globulin Ratio 1.5 Lipase 588 H D [facility] Medical History Recurrent pancreatitis Surgical History Anesthesia History of cholecystectomy (~01/2024) Family History Mother No problems noted. Father No problems noted. Social History household members: family Smoking Status: Never smoker alcohol intake: never Assessment & Plan Assessment & Plan narrative: 1. Recurrent pancreatitis, present on admission and active. This is slightly improved but not enough that we can change our plan so we will continue: -NPO, IVF. -Analgesics. -Antiemtics. Anticipate 2 MN in the hospital. Time-Based Coding :: [TOTAL MINUTES] spent with patient and on the chart (including review of chart, obtaining history, exam, reviewing outside data, placing orders, documenting exam and treatment plan, and counseling patient) on [DATE]. Quality VTE Deep Vein Thrombosis/Pulmonary Embolism Present on Admission: No
--- NOTE | 2025-07-06 07:58 | DIET.CONS ---
Dietary Consultation Note Admission Date: 07/05/2025 08:32 Assessment: 25 y M admitted for pancreastitis. Dietitian screened for MNA score. Pt previously seen by this RD and dx with severe protein-calorie malnutrition. Pt continues eating less than 50% of estimated energy needs. Tried bland diet, but minimal PO intake tolerated then went to ER and was d/c on clear liquids. Continues to experience significant weight loss. Ht: 167.64 cm Wt: 88.904 kg BMI: 31.6 UBW: 100 kg 3 months ago (-11% weight loss in 3 months, severe, 92.533 kg on 06/19/25 (-4% weight loss in 2 weeks, severe) Last BM: 07/04/25 (07/05/25 09:12) MNA: 10 Tarun Score: 21 Diet: 07/05/25 09:29 NPO Diet Diet Modifications: NPO Type: Strict Labs: RBC 4.50 X10^6/uL (4.5-5.9) 07/06/25 04:42 Hgb 13.0 g/dL (13.5-17.5) L 07/06/25 04:42 Hct 38.3 % (41-53) L 07/06/25 04:42 Creatinine 0.76 mg/dL (0.66-1.25) 07/06/25 04:42 Nutrition Diagnosis: Severe acute protein calorie malnutrition r/t compromised function of related GI organs as evidenced by 11% (25 lb) weight loss within 3 months (severe) and <50% of estimated energy needs for 3 months per diet recall (severe) Interventions: -Pt NPO, monitor days NPO and start Ensure clear when diet advanced EER: EER: 1750 kcals (MSJx1.1 vs. 15 kcals/kg per BMI) 75-90 g protein (1-1.2 g/kg adjusted IBW per PCM) Monitoring/Evaluations: days NPO Electronically Signed by: Mandie Vernon 07/06/25 07:58 Clinical Dietitian [address] [id number]
[2025-07-06 08:43] VITALS: BP 127/68; PULSE 65; RESP 13; TEMP 36.7; O2SAT 99
[2025-07-06] MEDS: HEPARIN 5,000 UNIT/ML VIAL 5000 UNIT SUBCUT ×2 (09:23→20:13)
[2025-07-06] MEDS: MORPHINE 4 MG/ML INJ IV ×2 (09:23→13:24)
--- NOTE | 2025-07-06 11:05 | CM.DANOTE ---
DCP Cont. Reviewed EMR and team rounds for pt's medical status and updates. Met with pt at bedside to introduce self and role, pt was found to be alert/oriented, resting quietly in bed. He shared that his pain is slightly better today, but still not well controlled-RN aware. Pt resides independently in his own home with family in [place]. He states that either his mother or girlfriend will transport him home once he's medically cleared for home d/c. Payor: JOVANNA PCP: None identified Pt is a 25 year-old M with a hx of recurrent pancreatitis recently seen in the ED for pancreatitis, was discharged back home with pain medications. He had been trying to follow a bland diet and use his pain meds as directed, however his pain worsened so he presented to the ED again for further evaluation. He does have an active referral to the [facility] for pancreatic f/u. Plan was made to admit for IV fluids, symptom managemement, and bowel rest. DCP will continue to follow and assist with any further d/c resource or assistance needs prior to his departure. Discharge Planning/Care Management CM Discharge Assessment Start: 07/05/25 08:43 Freq: Status: Active Protocol: Document 07/06/25 11:03 DPL (Rec: 07/06/25 11:04 DPL [id number]) Discharge Planning Assessment Assigned Discharge ROSARIO Momin [employer] Insurance [facility] Advance Directives? No Advance Directives No on File History Provided By Patient,Medical Record Has Patient been Yes admitted in last 30 days? Prior Living House Arrangements Household Members family Type of Drives own vehicle transporation used prior to admit Independent with ADL Yes 's Is patient alert and Yes oriented? Comment N/A Caregiver for No Another Comment N/A Comment No identified home d/c needs at this time. Barriers to No Discharge Discharge Plan Home Transportation Likely sig other or family Arrangement Referrals Initiated None needed Whiteboard Updated Yes in Patient Room with name and ext. # of Associate Theatre Professor Review Status In Process Please Provide Date 07/06/25 Initial DC Assessment Was Performed
[2025-07-06 14:00] VITALS: BP 122/58; PULSE 61; RESP 14; TEMP 37.2; O2SAT 98
[2025-07-06] MEDS: ONDANSETRON 4 MG/2 ML INJ IV ×2 (15:55→21:18)
[2025-07-06 20:00] VITALS: BP 115/65; PULSE 61; RESP 18; TEMP 36.6; O2SAT 98
[2025-07-07] MEDS: SODIUM CHLORIDE 0.9% 1,000 ML 100 ML IV ×3 (01:05→20:32)
[2025-07-07] MEDS: MORPHINE 2 MG/ML INJ IV ×7 (01:06→21:32)
[2025-07-07 02:00] VITALS: BP 105/53; PULSE 52; RESP 18; TEMP 36.4; O2SAT 99
[2025-07-07] MEDS: DEXTROSE 50 % IN WATER 25 GM/50 ML SYRINGE IV (02:49)
--- NOTE | 2025-07-07 03:42 | PC.NURSE ---
Addendum entered by Amy Eng RN 07/07/25 07:16: 04:30- BS 125; 05:12 - BS 103 Original Note: Patient NPO with Q6H blood sugar checks. At 02:20, BS 73. Dr. Montelongo ordered 1 amp D50 and check blood sugar a few more times until the morning. Recheck @ 03:30- BS 158.
[2025-07-07 05:50] LABS: Add Manual Diff / Slide Review NO; Hematocrit 37.9 % (41-53); Hemoglobin 12.8 g/dL (13.5-17.5); Lymphocytes Absolute Auto 1000 /uL (1100-4500); Mean Corpuscular HGB Conc 33.8 % (30-36); Mean Corpuscular Hemoglobin 29.0 PG (26-34); Mean Corpuscular Volume 85.7 fL (80-100); Platelet Count 183 X10^3/uL (150-400)
[2025-07-07 06:03] LABS: Albumin 4.5 g/dL (3.5-5.0); Albumin Globulin Ratio 1.5 (1.0-2.8); Alkaline Phosphatase 158 U/L (38-126); Blood Urea Nitrogen 5 mg/dL (9-20); Calcium 9.3 mg/dL (8.4-10.2); Carbon Dioxide 19 mmol/L (22-32); Chloride 103 mmol/L (98-107); Estimated Glomerular Filt Rate > 60 mL/min (>60); Globulin 3.1 g/dL (1.7-4.1); Glucose 102 mg/dL (70-99); HEMOLYSIS < 15 (0-50); Lipase 239 U/L (23-300); Potassium 3.8 mmol/L (3.4-5.1); Sodium 134 mmol/L (137-145); Total Protein 7.6 g/dL (6.3-8.2)
[2025-07-07 06:12] LABS: Alanine Aminotransferase 1132 IU/L (<50)
--- NOTE | 2025-07-07 07:31 | P.PN_ITS ---
Subjective Subjective Interval history: Hospital course: Patient was admitted with pancreatitis. He was a history of recurrent chronic pancreatitis since 2017 without clear etiology. He was evaluated at [facility] without a specific etiology being discovered. He was a pending referral to [facility]. He denies alcohol, has had a cholecystectomy and has no issues with hypertriglyceridemia. S: A slow improvement, remains NPO and IV fluids. Some abdomen pain. Exam Vital Signs (past 8 hours): - 07/07/25 02:00 Temperature 97.5 F L Pulse Rate 52 L Respiratory Rate 18 Blood Pressure 105/53 L Pulse Oximetry 99 Oxygen Flow Rate 0 Oxygen Delivery Method Room Air Oxygen Flow Rate 0 Narrative Exam Narrative: NAD, alert and oriented. Fluent speech. Lungs are clear, normal rate and effort. Heart is regular, no murmur gallop or rub. Abdomen is soft, non distended. Mild tenderness with palpation, epigastric. Extremities are free of edema. Objective Imaging APCT: : Radiologist's impression: 1. Remote cholecystectomy. 2. Mild prominence of the pancreatic duct, unchanged. 3. No biliary ductal dilatation. 4. Diverticulosis. 5. No acute abdominal process noted. Labs 07/07/25 05:12 07/07/25 05:12 Labs: Laboratory Results - last 24 hr 07/06/25 07/06/25 07/06/25 08:47 13:51 20:15 WBC RBC Hgb Hct MCV MCH MCHC RDW Plt Count Neut % (Auto) Lymph % (Auto) [place] % (Auto) Eos % (Auto) Baso % (Auto) Neut # (Auto) Lymph # (Auto) [place] # (Auto) Eos # (Auto) Baso # (Auto) Sodium Potassium Chloride Carbon Dioxide BUN Creatinine Estimated GFR BUN/Creatinine Ratio Glucose POC Whole Bld Glucose 86 76 83 Calcium Total Bilirubin AST ALT Alkaline Phosphatase Total Protein Albumin Globulin Albumin/Globulin Ratio Lipase 07/07/25 07/07/25 07/07/25 02:20 03:42 04:32 WBC RBC Hgb Hct MCV MCH MCHC RDW Plt Count Neut % (Auto) Lymph % (Auto) [place] % (Auto) Eos % (Auto) Baso % (Auto) Neut # (Auto) Lymph # (Auto) [place] # (Auto) Eos # (Auto) Baso # (Auto) Sodium Potassium Chloride Carbon Dioxide BUN Creatinine Estimated GFR BUN/Creatinine Ratio Glucose POC Whole Bld Glucose 73 158 H 125 H Calcium Total Bilirubin AST ALT Alkaline Phosphatase Total Protein Albumin Globulin Albumin/Globulin Ratio Lipase 07/07/25 05:12 WBC 3.0 L RBC 4.42 L Hgb 12.8 L Hct 37.9 L MCV 85.7 MCH 29.0 MCHC 33.8 RDW 13.2 Plt Count 183 Neut % (Auto) 54.5 Lymph % (Auto) 32.3 [place] % (Auto) 6.7 Eos % (Auto) 5.7 H Baso % (Auto) 0.8 Neut # (Auto) 1700 Lymph # (Auto) 1000 L [place] # (Auto) 200 Eos # (Auto) 200 Baso # (Auto) 0 Sodium 134 L Potassium 3.8 Chloride 103 Carbon Dioxide 19 L BUN 5 L Creatinine 0.72 Estimated GFR > 60 BUN/Creatinine Ratio 6.9 Glucose 102 H POC Whole Bld Glucose 103 H Calcium 9.3 Total Bilirubin 4.1 H AST 879 H ALT 1132 H Alkaline Phosphatase 158 H Total Protein 7.6 Albumin 4.5 Globulin 3.1 Albumin/Globulin Ratio 1.5 Lipase 239 D [facility] Medical History Recurrent pancreatitis Surgical History Anesthesia History of cholecystectomy (~01/2024) Family History Mother No problems noted. Father No problems noted. Social History household members: family Smoking Status: Never smoker alcohol intake: never Assessment & Plan Assessment & Plan narrative: 1. Recurrent pancreatitis, present on admission and active. This is slightly improved but not enough to start eating. -NPO, IVF. -Analgesics. -Antiemtics. Anticipate another night in the hospital. Time-Based Coding :: [TOTAL MINUTES] spent with patient and on the chart (including review of chart, obtaining history, exam, reviewing outside data, placing orders, documenting exam and treatment plan, and counseling patient) on [DATE]. Quality VTE Deep Vein Thrombosis/Pulmonary Embolism Present on Admission: No
[2025-07-07 08:19] VITALS: BP 114/63; PULSE 50; RESP 14; TEMP 37; O2SAT 98
--- NOTE | 2025-07-07 10:24 | CM.DPC ---
Reviewed EMR and team rounds for pt's medical status and updates. Per Hospitalist, pt is advancing diet, likely be medically clear for d/c home after another 1-2 days. Monitoring for final needs, none anticipated at this time.
[2025-07-07] MEDS: HEPARIN 5,000 UNIT/ML VIAL 5000 UNIT SUBCUT ×2 (10:29→20:32)
[2025-07-07 14:01] VITALS: BP 122/64; PULSE 60; RESP 15; TEMP 37.2; O2SAT 98
[2025-07-07 19:00] VITALS: BP 129/70; PULSE 55; RESP 18; TEMP 36.6; O2SAT 98
[2025-07-07] MEDS: ONDANSETRON 4 MG/2 ML INJ IV (21:38)
[2025-07-07] MEDS: DEXTROSE 5%-0.9% NS 1,000 ML 75 ML IV (21:50)
--- NOTE | 2025-07-08 | DI.MRI.S_ITS ---
PROCEDURE: MR AB PANCREATIC/MRCP PROTOCOL INDICATIONS: recurrent pancreatitis, assess pancreatic duct TECHNIQUE: Coronal HASTE through the abdomen, axial 2-D FLASH in- and [id number], and breath-hold T2 FSE with fat saturation through the biliary system and pancreas. Oblique coronal and axial thin-slice HASTE, radial thick-slab HASTE centered on the extrahepatic bile ducts. Intravenous secretin: Not requested. COMPARISON: [facility], CT, CT ABDOMEN PELVIS W CON, 07/05/2025, 6:41. [facility], MR, MR ABDOMEN MRCP, 05/09/2025, 12:54. FINDINGS: Image quality: Diagnostic Lower chest: Unremarkable lung bases. Liver: Hepatic steatosis. No suspicious focal lesion. No hepatic abscess. Gallbladder and biliary system: No biliary ductal dilation. No discrete obstructing mass or stone. Gallbladder is not seen. Pancreas: There is mild irregularity of the pancreatic duct, particularly at the head. No discrete obstructing mass however is identified. No significant acute inflammatory changes on today's study. No pancreatic or peripancreatic fluid collection. No pathologic ductal dilation. The duct at the head measures about 2-3 mm. Spleen: Spleen size is at the upper limit normal, 13 cm. Adrenals: No discrete nodules Kidneys: No solid mass. No hydronephrosis. Vessels and lymph nodes: There are prominent periportal lymph nodes, probably reactive liver disease, also seen previously. No enlarged retroperitoneal lymph nodes by size criteria. No abdominal aortic aneurysm. The main portal vein appears patent Bowel and peritoneum: No bowel obstruction. No drainable abscess or ascites Body wall: Unremarkable Bones: No aggressive appearing osseous abnormality. IMPRESSION: No pathologic pancreatic ductal dilation. Mild irregularity is seen at the head, likely related to prior inflammation. No definite obstructing mass. No pancreatic or peripancreatic fluid collection Hepatic steatosis. Other findings above. Dictated by: Sherwin Maddox M.D. on 07/08/2025 at 9:40 Approved by: Sherwin Maddox M.D. on 07/08/2025 at 9:47
[2025-07-08] MEDS: MORPHINE 2 MG/ML INJ IV ×4 (00:59→14:46)
[2025-07-08 01:00] VITALS: BP 120/72; PULSE 66; RESP 18; TEMP 36.9; O2SAT 99
[2025-07-08 06:20] LABS: Add Manual Diff / Slide Review NO; Hematocrit 37.4 % (41-53); Hemoglobin 12.7 g/dL (13.5-17.5); Lymphocytes Absolute Auto 1500 /uL (1100-4500); Mean Corpuscular HGB Conc 34.0 % (30-36); Mean Corpuscular Hemoglobin 29.1 PG (26-34); Mean Corpuscular Volume 85.7 fL (80-100); Platelet Count 186 X10^3/uL (150-400)
[2025-07-08 06:26] LABS: Albumin 4.4 g/dL (3.5-5.0); Albumin Globulin Ratio 1.4 (1.0-2.8); Alkaline Phosphatase 144 U/L (38-126); Blood Urea Nitrogen 6 mg/dL (9-20); Calcium 9.2 mg/dL (8.4-10.2); Carbon Dioxide 20 mmol/L (22-32); Chloride 105 mmol/L (98-107); Estimated Glomerular Filt Rate > 60 mL/min (>60); Globulin 3.1 g/dL (1.7-4.1); Glucose 85 mg/dL (70-99); HEMOLYSIS < 15 (0-50); Lipase 50 U/L (23-300); Potassium 3.6 mmol/L (3.4-5.1); Sodium 137 mmol/L (137-145); Total Protein 7.5 g/dL (6.3-8.2)
[2025-07-08 06:33] LABS: Alanine Aminotransferase 926 IU/L (<50)
[2025-07-08 08:14] VITALS: BP 112/65; PULSE 64; RESP 18; TEMP 36.3; O2SAT 99
[2025-07-08] MEDS: HEPARIN 5,000 UNIT/ML VIAL 5000 UNIT SUBCUT ×2 (09:21→20:13)
[2025-07-08] MEDS: ONDANSETRON 4 MG/2 ML INJ IV (09:22)
--- NOTE | 2025-07-08 10:59 | CM.DPC ---
Reviewed EMR and team rounds for pt's medical status and updates. Per Hospitalist, pt is advancing diet. MRCP to be ordered by Hospitalist today. Possible d/c home after another 1-2 days. Monitoring for final needs, none anticipated at this time.
[2025-07-08] MEDS: DEXTROSE 5%-0.9% NS 1,000 ML 75 ML IV (11:14)
--- NOTE | 2025-07-08 11:54 | P.PN_ITS ---
Subjective Subjective Interval history: 25 yo male w/hx of chronic recurrent pancreatitis of unknown etiology admitted w/acute pancreatitis. CT showed a diffusely prominent pancreatic duct to the level of the duodenum w/o mass. Patient reports he is feeling better today than yesterday. He is afraid to do anything other than drink water, as he is worried about pain. He received a total of 14 mg of IV morphine in the last 24 hours. No nausea. Exam Vital Signs (past 8 hours): - 07/07/25 14:01 Temperature 99.0 F Pulse Rate 60 Respiratory Rate 15 Blood Pressure 122/64 Pulse Oximetry 98 Oxygen Flow Rate 0 Oxygen Delivery Method Room Air Oxygen Flow Rate 0 Narrative Exam Narrative: GEN: Adult male, Alert and oriented x 3, NAD HEENT:NC, Face symmetric CHEST: Respiratory excursions symmetric, CTAB CV: RRR, no M/R/G ABD: Soft, mild to moderate epigastric tenderness/ND, BT present in all 4 quadrants, no organomegaly or masses EXTR: warm, well perfused, no C/C/E SKIN: warm and dry, no rash NEURO: Alert and oriented x 3, nonfocal Objective Labs 07/08/25 05:37 07/08/25 05:37 Labs: Laboratory Results - last 24 hr 07/06/25 07/07/25 07/07/25 20:15 02:20 03:42 WBC RBC Hgb Hct MCV MCH MCHC RDW Plt Count Neut % (Auto) Lymph % (Auto) [place] % (Auto) Eos % (Auto) Baso % (Auto) Neut # (Auto) Lymph # (Auto) [place] # (Auto) Eos # (Auto) Baso # (Auto) Sodium Potassium Chloride Carbon Dioxide BUN Creatinine Estimated GFR BUN/Creatinine Ratio Glucose POC Whole Bld Glucose 83 73 158 H Calcium Total Bilirubin AST ALT Alkaline Phosphatase Total Protein Albumin Globulin Albumin/Globulin Ratio Lipase 07/07/25 07/07/25 07/07/25 04:32 05:12 08:09 WBC 3.0 L RBC 4.42 L Hgb 12.8 L Hct 37.9 L MCV 85.7 MCH 29.0 MCHC 33.8 RDW 13.2 Plt Count 183 Neut % (Auto) 54.5 Lymph % (Auto) 32.3 [place] % (Auto) 6.7 Eos % (Auto) 5.7 H Baso % (Auto) 0.8 Neut # (Auto) 1700 Lymph # (Auto) 1000 L [place] # (Auto) 200 Eos # (Auto) 200 Baso # (Auto) 0 Sodium 134 L Potassium 3.8 Chloride 103 Carbon Dioxide 19 L BUN 5 L Creatinine 0.72 Estimated GFR > 60 BUN/Creatinine Ratio 6.9 Glucose 102 H POC Whole Bld Glucose 125 H 103 H 76 Calcium 9.3 Total Bilirubin 4.1 H AST 879 H ALT 1132 H Alkaline Phosphatase 158 H Total Protein 7.6 Albumin 4.5 Globulin 3.1 Albumin/Globulin Ratio 1.5 Lipase 239 D 07/07/25 12:59 WBC RBC Hgb Hct MCV MCH MCHC RDW Plt Count Neut % (Auto) Lymph % (Auto) [place] % (Auto) Eos % (Auto) Baso % (Auto) Neut # (Auto) Lymph # (Auto) [place] # (Auto) Eos # (Auto) Baso # (Auto) Sodium Potassium Chloride Carbon Dioxide BUN Creatinine Estimated GFR BUN/Creatinine Ratio Glucose POC Whole Bld Glucose 89 Calcium Total Bilirubin AST ALT Alkaline Phosphatase Total Protein Albumin Globulin Albumin/Globulin Ratio Lipase [facility] Medical History Recurrent pancreatitis Surgical History Anesthesia History of cholecystectomy (~01/2024) Family History Mother No problems noted. Father No problems noted. Social History household members: family Smoking Status: Never smoker alcohol intake: never Assessment & Plan Assessment & Plan narrative: 1. Acute pancreatitis in the setting of recurrent episodes of pancreatitis CT scan did reveal evidence of a diffusely prominent pancreatic duct to the level of the duodenal without mass. Labs have improved again today with AST down to 430, which is approximately half what it was yesterday, ALT down to 926 from 09/17 2, alk-phos 144. Lipase is down to 50. CRP is less than 0.5. Diet was advanced to clear liquids this morning. I have encouraged him to try a clear liquid tray for lunch and he is agreeable. Advised that once he is tolerating that we can advance to full liquids and start oral pain medications which would then enable him to go home. He expresses understanding and is in agreement. 2. Transaminitis Continuing to improve as noted above. 3. Pancreatic ductal dilation Will obtain an MRCP to rule out any strictures or congenital abnormalities. He had his 1st episode of pancreatitis as a teenager in 2017. Code status Full Prophy Heparin Dispo Possible discharge home tomorrow if his symptoms continue to improve and he is tolerating a diet and oral pain medications. Time-Based Coding :: [TOTAL MINUTES] spent with patient and on the chart (including review of chart, obtaining history, exam, reviewing outside data, placing orders, documenting exam and treatment plan, and counseling patient) on [DATE]. Quality VTE Deep Vein Thrombosis/Pulmonary Embolism Present on Admission: No
[2025-07-08 12:00] VITALS: BP 127/86; PULSE 68; RESP 16; TEMP 36.9; O2SAT 97
[2025-07-08] MEDS: LIPASE/PROTEASE/AMYLASE 5/17/24 CAP 5 CAP PO (17:20)
[2025-07-08] MEDS: MORPHINE 4 MG/ML INJ IV (17:23)
[2025-07-08 18:00] VITALS: BP 119/64; PULSE 82; RESP 16; TEMP 36.8; O2SAT 99
--- NOTE | 2025-07-08 18:11 | P.PN_ITS ---
Subjective Subjective Interval history: 25 yo male w/hx of chronic recurrent pancreatitis of unknown etiology admitted w/acute pancreatitis. CT showed a diffusely prominent pancreatic duct to the level of the duodenum w/o mass. Exam Vital Signs (past 8 hours): - 07/08/25 12:00 07/08/25 18:00 Temperature 98.5 F 98.2 F Pulse Rate 68 82 Respiratory Rate 16 16 Blood Pressure 127/86 119/64 Pulse Oximetry 97 99 Oxygen Delivery Method Room Air Oxygen Flow Rate 0 Objective Labs 07/08/25 05:37 07/08/25 05:37 Labs: Laboratory Results - last 24 hr 07/07/25 07/08/25 07/08/25 21:18 03:06 05:37 WBC 3.6 L RBC 4.36 L Hgb 12.7 L Hct 37.4 L MCV 85.7 MCH 29.1 MCHC 34.0 RDW 13.3 Plt Count 186 Neut % (Auto) 44.7 L Lymph % (Auto) 41.3 H [place] % (Auto) 6.3 Eos % (Auto) 7.2 H Baso % (Auto) 0.5 Neut # (Auto) 1600 Lymph # (Auto) 1500 [place] # (Auto) 200 Eos # (Auto) 300 Baso # (Auto) 0 Sodium 137 Potassium 3.6 Chloride 105 Carbon Dioxide 20 L BUN 6 L Creatinine 0.72 Estimated GFR > 60 BUN/Creatinine Ratio 8.3 Glucose 85 POC Whole Bld Glucose 68 L 83 Calcium 9.2 Total Bilirubin 1.9 H AST 430 H ALT 926 H Alkaline Phosphatase 144 H C-Reactive Protein < 0.5 Total Protein 7.5 Albumin 4.4 Globulin 3.1 Albumin/Globulin Ratio 1.4 Lipase 50 D [facility] Medical History Recurrent pancreatitis Surgical History Anesthesia History of cholecystectomy (~01/2024) Family History Mother No problems noted. Father No problems noted. Social History household members: family Smoking Status: Never smoker alcohol intake: never Assessment & Plan Assessment & Plan narrative: 1. Acute pancreatitis in the setting of recurrent episodes of pancreatitis CT scan did reveal evidence of a diffusely prominent pancreatic duct to the level of the duodenal without mass. Labs have improved again today with AST down to 430, which is approximately half what it was yesterday, ALT down to 926 from 09/17 2, alk-phos 144. Lipase is down to 50. CRP is less than 0.5. Diet was advanced to clear liquids this morning. I have encouraged him to try a clear liquid tray for lunch and he is agreeable. Advised that once he is tolerating that we can advance to full liquids and start oral pain medications which would then enable him to go home. He expresses understanding and is in agreement. 2. Transaminitis Continuing to improve as noted above. 3. Pancreatic ductal dilation Will obtain an MRCP to rule out any strictures or congenital abnormalities. He had his 1st episode of pancreatitis as a teenager in 2017. Code status Full Prophy Heparin Dispo Possible discharge home tomorrow if his symptoms continue to improve and he is tolerating a diet and oral pain medications. Time-Based Coding :: [TOTAL MINUTES] spent with patient and on the chart (including review of chart, obtaining history, exam, reviewing outside data, placing orders, documenting exam and treatment plan, and counseling patient) on [DATE]. Quality VTE Deep Vein Thrombosis/Pulmonary Embolism Present on Admission: No
[2025-07-08 20:47] VITALS: BP 122/70; PULSE 55; RESP 18; TEMP 36.3; O2SAT 99
[2025-07-09] MEDS: DEXTROSE 5%-0.9% NS 1,000 ML 75 ML IV (00:40)
[2025-07-09 06:45] LABS: Add Manual Diff / Slide Review NO; Hematocrit 37.7 % (41-53); Hemoglobin 12.8 g/dL (13.5-17.5); Lymphocytes Absolute Auto 1000 /uL (1100-4500); Mean Corpuscular HGB Conc 33.9 % (30-36); Mean Corpuscular Hemoglobin 29.0 PG (26-34); Mean Corpuscular Volume 85.4 fL (80-100); Platelet Count 186 X10^3/uL (150-400)
[2025-07-09 07:00] LABS: Alanine Aminotransferase 678 IU/L (<50); Albumin 4.2 g/dL (3.5-5.0); Albumin Globulin Ratio 1.4 (1.0-2.8); Alkaline Phosphatase 138 U/L (38-126); Blood Urea Nitrogen 4 mg/dL (9-20); Calcium 9.1 mg/dL (8.4-10.2); Carbon Dioxide 23 mmol/L (22-32); Chloride 104 mmol/L (98-107); Estimated Glomerular Filt Rate > 60 mL/min (>60); Globulin 3.0 g/dL (1.7-4.1); Glucose 109 mg/dL (70-99); HEMOLYSIS < 15 (0-50); Lipase 60 U/L (23-300); Potassium 3.4 mmol/L (3.4-5.1); Sodium 137 mmol/L (137-145); Total Protein 7.2 g/dL (6.3-8.2)
[2025-07-09] MEDS: HEPARIN 5,000 UNIT/ML VIAL 5000 UNIT SUBCUT (08:18)
[2025-07-09] MEDS: LIPASE/PROTEASE/AMYLASE 5/17/24 CAP 5 CAP PO ×2 (08:18→12:58)
[2025-07-09] MEDS: POTASSIUM CHLORIDE IN WATER 10 MEQ/100 ML PIGGYBACK 100 MEQ IV ×2 (08:26→09:53)
[2025-07-09] MEDS: ONDANSETRON 4 MG/2 ML INJ IV (11:16)
[2025-07-09 12:00] VITALS: BP 125/66; PULSE 60; RESP 16; TEMP 37; O2SAT 98
--- NOTE | 2025-07-09 13:32 | PC.NURSE ---
Discharge note Patient A&Ox4, Ind steady gate. Discharge education completed. Chaperoned off unit by Nurse Estephanie Miller. Pt denies N/V/pain prior to d/c. All lines removed. Pt confirms all belongings in his possession.
--- NOTE | 2025-07-09 13:43 | CM.DPC ---
DCP Discharge Home Per MD, pt able to ambulate the halls yesterday and today after encouragement and tolerating diet and medically stable to discharge home with outpt f/u. Per Rn, discharge instructions provided and no concerns noted and pt has ride home today. ROSARIO Araya
--- NOTE | 2025-07-09 20:30 | PM.DS.1 ---
History of Present Illness History of Present Illness Chief complaint: Back Pain, Abdominal Pain, Nausea Narrative: Per H&P: Patient was a 25-year-old male with a history of chronic recurrent pancreatitis 20 has no clear contributors to his recurrent episodes. He was not drink alcohol, and was evaluated Sheron kat and not found to have a clear etiology for his issues. He was no known history of autoimmune pancreatitis, does not take any drugs implicated in pancreatitis and has no family history. He was in the ER several days ago with a lipase of 6000, did bowel rest at home and stayed on liquids. He had progressive abdominal pain which is epigastric, constant, and radiates to the back. He was having nausea, but no vomiting. He came back to the ED today and had a lipase of 12,000. Discharge Providers Provider Date of admission: 07/05/25 08:32 Discharge Date: 07/09/25 Consults: 07/05/25 09:25 Consult to Pastoral Services Routine Comment: Assessed as high risk, chronic pancreatitis Discharge provider: Lena Bangura MD Summary Hospital Course Discharge Diagnosis: 1. Acute pancreatitis in the setting of recurrent pancreatitis, improved 2. Transaminitis, improving 3. Pancreatic ductal dilatation, felt to be secondary to inflammation Hospital Course: 25 yo male w/hx of chronic recurrent pancreatitis of unknown etiology admitted w/acute pancreatitis. CT showed a diffusely prominent pancreatic duct to the level of the duodenum w/o mass. On admission, lipase was 12,161. It rapidly improved and was 588 on July 06. It had normalized at 239 on July 07. It was down to 50 on July 08 and was 60 on the date of discharge. His AST peaked at 1268 on July 06 and improved each day until the day of discharge when it was 222. Likewise, his ALT peaked at 1132 on July 07 and improved and was 678 on the date of discharge. His alkaline phosphatase remains stable at 138 which was improved from a peak of 158. His total bilirubin peaked at 4.1 on July 07 and was down to 1.4 on the date of discharge. He was NPO from admission until July 08 when he was advanced to clear liquids. An MRI was performed on July 08 due to findings of a prominent pancreatic duct on CT scan. There was no evidence of stenosis or mass or other abnormality. It was felt the prominent seen on CT was likely secondary to inflammation from pancreatitis. He tolerated that well and transitioned to full liquids on the date discharge. Was also able to transitioned to oral oxycodone for pain control overnight on the day before discharge. He was tolerating that well without any nausea, vomiting, or increased abdominal pain. He was ambulating the unit without any difficulty. He felt he was approaching baseline and requested to discharge home on the afternoon of July 09. Patient is discharged in stable condition. Status at Discharge Cognitive/behavioral status at discharge: at baseline, oriented Functional status at discharge: independent ambulation Overall status at discharge: patient is progressing back to baseline Time Spent with Patient Time spent: Less than 30 minutes Exam Vital Signs (past 8 hours): Oxygen Delivery Method Room Air Oxygen Flow Rate 0 Narrative Exam Narrative: GEN: Adult male, Alert and oriented x 3, NAD HEENT:NC, Face symmetric CHEST: Respiratory excursions symmetric, CTAB CV: RRR, no M/R/G ABD: Soft, mild epigastric tenderness/ND, BT present in all 4 quadrants, no organomegaly or masses EXTR: warm, well perfused, no C/C/E SKIN: warm and dry, no rash NEURO: Alert and oriented x 3, nonfocal Objective Labs 07/09/25 06:08 07/09/25 06:08 Labs: Laboratory Results - last 24 hr 07/09/25 06:08 WBC 5.9 D RBC 4.41 L Hgb 12.8 L Hct 37.7 L MCV 85.4 MCH 29.0 MCHC 33.9 RDW 13.5 Plt Count 186 Neut % (Auto) 72.2 D Lymph % (Auto) 17.[address] % (Auto) 6.3 Eos % (Auto) 3.5 Baso % (Auto) 0.4 Neut # (Auto) 4300 Lymph # (Auto) [address] [facility] [place] [facility] # (Auto) 400 Eos # (Auto) 200 Baso # (Auto) 0 Sodium 137 Potassium 3.4 Chloride 104 Carbon Dioxide 23 BUN 4 L Creatinine 0.75 Estimated GFR > 60 BUN/Creatinine Ratio 5.3 L Glucose 109 H Calcium 9.1 Total Bilirubin 1.4 H AST 222 H ALT 678 H Alkaline Phosphatase 138 H C-Reactive Protein < 0.5 Total Protein 7.2 Albumin 4.2 Globulin 3.0 Albumin/Globulin Ratio 1.4 Lipase 60 [facility] Medical History Recurrent pancreatitis Surgical History Anesthesia History of cholecystectomy (~01/2024) Family History Mother No problems noted. Father No problems noted. Social History household members: family Smoking Status: Never smoker alcohol intake: never Discharge Plan Discharge Plan Patient Disposition: Home Provider Discharge Comment: 1) Your pancreatitis has continued to improve. Your liver function tests remain elevated but continue to improve as well. Please follow up with your Primary Care provider to get repeat labs (liver function tests) next week. Your labs today were: AST 222, ALT 678, Alkaline phosphatase 138, lipase 60, Total bilirubin 1.4 2) Continue a low fat, full liquid diet today 3) advance to a low fat regular diet tomorrow as tolerated Return to the ED: Inability to hold down food/fluids/medications. Worsening abdominal pain Jaundice or increased yellowing of the eyes Discharge orders & Medications Prescriptions: Continued Zenpep 25,000-79,000- 105,000 unit capsule,delayed release(DR/EC) 1 cap PO 3XD sucralfate 100 mg/mL Suspension 1 gm PO Q4HR Qty: 440 0RF ondansetron 4 mg Tablet,Disintegrating 4 mg PO Q8HR PRN (Reason: Nausea And Vomiting) Qty: 20 0RF oxycodone 5 mg tablet 5 mg PO Q6H PRN (Reason: pain) Qty: 20 0RF Discharge Health Status Multidrug resistant organism: No MDRO Diet/Activity/Treatments Diet: Diet as Tolerated and Low-fat Activity: As tolerated Oxygen: N/A Visit Report/Discharge Packet Instructions: Pancreatitis (Alternative Therapy), Chronic Pancreatitis Stand Alone Forms: Patient Portal/API, Stroke Signs & Symptoms Quality VTE Deep Vein Thrombosis/Pulmonary Embolism Present on Admission: No
== END 2025-07-09 13:41 | disposition home or self-care (01) | DRG 282 ==
LOC: ED 07:32 → AC 08:32
PROVIDERS: Family Medicine; Admitting Provider Hospitalist; Emergency Provider Emergency Medicine; Referring Provider Emergency Medicine; Visit Provider Hospitalist
DX: K85.90 Acute pancreatitis without necrosis or infection, unspecified (principal); R74.01 Elevation of levels of liver transaminase levels; K86.89 Other specified diseases of pancreas; Z90.49 Acquired absence of other specified parts of digestive tract
CPT/HCPCS: 36415; 74177; 74183; 80053; 81003; 82962; 83690; 85025; 86140; 93010; 96361; 96374; 96375; 99284; A9270; A9579; J1171; J1644; J1885; J2270; J2272; J2405; Q9967